=== PATIENT | female | born 1990 | race Caucasian/White ===

== ENCOUNTER 2021-08-14 07:30 | Inpatient (IN) | payer BC ==
[2021-09-14] MEDS ORDERED: Ondansetron PF 4 MG/2 ML Vial IVP PRN ×3 (05:44→14:42)
[2021-09-14] MEDS ORDERED: Bicitra 30 ML UDCUP PO PRN (05:44)
[2021-09-14] MEDS ORDERED: Famotidine/PF 20 mg/2ml Vial SLOW IVP PRN (05:44)
[2021-09-14] MEDS ORDERED: hydrALAZINE 20 MG/ML VIAL SLOW IVP PRN ×2 (05:44→14:42)
[2021-09-14] MEDS ORDERED: Promethazine HCl 25 MG/ML VIAL IM PRN ×2 (05:44→09:45)
[2021-09-14] MEDS ORDERED: Docusate 100 MG CAP PO PRN (05:44)
[2021-09-14] MEDS ORDERED: CEFAZOLIN 2 GM in Premix Bag 1 BAG IVPB SCH (06:00)
[2021-09-14] MEDS: Lactated Ringer's 1,000 ML IV SCH ×2 (06:10→07:19)
[2021-09-14 06:21] VITALS: BMI 43.5
[2021-09-14 06:48] LABS: Hemoglobin 10.2 g/dL (12.0-15.5); Mean Corpuscular HGB CONC 33.8 g/dL (32.0-36.0); Mean Corpuscular Hemoglobin 30.5 pg (27.0-33.0); Mean Corpuscular Volume 90.4 fl (81.6-98.3); Mean Platelet Volume 11.4 fl (7.4-10.4); Platelet Count 150 10x3/uL (150-450); RBC Distribution Width 16.3 % (11.5-14.5); Red Blood Cell (RBC) Count 3.34 10x6/uL (3.90-5.03); White Blood Cell (WBC) Count 7.9 10x3/uL (3.5-10.5)
[2021-09-14] MEDS ORDERED: Ondansetron PF 4 MG/2 ML Vial ONE (07:03)
[2021-09-14] MEDS ORDERED: PHENYLEPHRINE-NS 100 MCG/ML 10 ML SYRINGE ONE (07:03)
[2021-09-14] MEDS ORDERED: Oxytocin 10 UNITS/ML VIAL ONE ×2 (07:03→08:04)
[2021-09-14] MEDS ORDERED: Morphine PF 10 MG/10 ML VIAL ONE (07:03)
[2021-09-14] MEDS ORDERED: ePHEDrine Sulfate 50 MG/10 ML VIAL ONE (07:04)
[2021-09-14] MEDS ORDERED: Ketorolac Tromethamine 30 MG/ML VIAL ONE (07:04)
[2021-09-14] MEDS ORDERED: Phenylephrine 40 MG/NS 250 ML 250 ML ONE (07:06)
[2021-09-14 07:30] LABS: HIV (1/2) Antibody/Antigen Non-Reactive (NonReactive); HIV 1/2 INDEX 0.05 S/CO (<1.00); Hep B Surf Ag Non-Reactive S/CO (NonReactive); Syphilis Antibody Nonreactive (Nonreactive); Syphilis Antibody Index 0.08 S/CO (<1.00 Non-Reactive)
[2021-09-14] MEDS ORDERED: Midazolam HCl 2 mg/2 ml Vial ONE (08:12)
[2021-09-14] MEDS ORDERED: Misoprostol 200 MCG TAB ONE (09:22)
[2021-09-14] MEDS ORDERED: Promethazine HCl 25 MG SUPP PR PRN (09:45)
[2021-09-14] MEDS ORDERED: HYDROmorphone 2 MG/ML VIAL SLOW IVP PRN (09:45)
[2021-09-14] MEDS ORDERED: Hydrocerin (Eucerin) Cream 120 gm Jar TOP PRN (09:45)
[2021-09-14] MEDS ORDERED: Naloxone HCl 0.4 mg/ml Vial IVP PRN ×2 (09:45)
[2021-09-14] MEDS ORDERED: Ketorolac Tromethamine 30 MG/ML VIAL IVP SCH (09:45)
[2021-09-14] MEDS ORDERED: Ondansetron HCl/PF 4 MG/2 ML Vial IVP PRN (09:45)
[2021-09-14] MEDS ORDERED: Meperidine HCl/PF 25 MG/ML VIAL SLOW IVP PRN (09:45)
[2021-09-14] MEDS ORDERED: Fentanyl 100 MCG/2 ML VIAL SLOW IVP PRN (09:45)
[2021-09-14] MEDS ORDERED: Naloxone HCl 0.4 mg/ml Vial IV PRN (09:45)
[2021-09-14] MEDS ORDERED: diphenhydrAMINE 50 MG/ML VIAL IVP PRN (09:45)
[2021-09-14] MEDS ORDERED: Communication Order-Pharmacy FS SCH (09:45)
[2021-09-14 11:28] LABS: Hemoglobin 9.3 g/dL (12.0-15.5)
[2021-09-14] MEDS ORDERED: Boostrix 0.5 ML (Tdap) VIAL IM ONE (14:42)
[2021-09-14] MEDS ORDERED: Lanolin Ointment 7 GM TUBE TOP PRN (14:42)
[2021-09-14] MEDS ORDERED: Misoprostol 200 MCG TAB PR PRN (14:42)
[2021-09-14] MEDS ORDERED: diphenhydrAMINE 25 MG CAP PO PRN (14:42)
[2021-09-14] MEDS ORDERED: NS w/ Oxytocin 30 units 500 ML IV SCH (14:42)
[2021-09-14] MEDS: Ketorolac Tromethamine 30 MG/ML VIAL IVP PRN (19:35)
[2021-09-14] MEDS: Docusate Calcium (SURFAK) 240 MG CAP PO SCH (21:07)
[2021-09-14] MEDS: Ferrous Sulfate 325 MG TAB PO SCH (21:07)
[2021-09-14] MEDS ORDERED: HYDROcodone/Acetaminophen 5/325 mg Tablet PO PRN (21:45)
[2021-09-15] MEDS: Ketorolac Tromethamine 30 MG/ML VIAL IVP PRN (01:52)
[2021-09-15 05:04] LABS: Hemoglobin 8.9 g/dL (12.0-15.5); Mean Corpuscular HGB CONC 33.8 g/dL (32.0-36.0); Mean Corpuscular Hemoglobin 30.5 pg (27.0-33.0); Mean Corpuscular Volume 90.1 fl (81.6-98.3); Mean Platelet Volume 11.4 fl (7.4-10.4); Platelet Count 164 10x3/uL (150-450); RBC Distribution Width 16.6 % (11.5-14.5); Red Blood Cell (RBC) Count 2.92 10x6/uL (3.90-5.03); White Blood Cell (WBC) Count 14.9 10x3/uL (3.5-10.5)
[2021-09-15] MEDS: HYDROcodone/Acetaminophen 5/325 mg Tablet PO PRN ×2 (08:33→13:48)
[2021-09-15] MEDS: Ferrous Sulfate 325 MG TAB PO SCH ×2 (08:33→21:07)
[2021-09-15] MEDS: Prenatal Vitamin 1 TAB PO SCH (08:33)
[2021-09-15] MEDS: Simethicone Chewable 80 MG TAB PO PRN ×3 (08:34→21:07)
[2021-09-15] MEDS: Docusate Calcium (SURFAK) 240 MG CAP PO SCH ×2 (08:34→21:07)
[2021-09-15] MEDS: Ibuprofen 800 MG TAB PO SCH ×2 (13:47→21:07)
[2021-09-16] MEDS: Ibuprofen 800 MG TAB PO SCH (05:10)
[2021-09-16 07:55] VITALS: BP 136/70; TEMP 98.4
[2021-09-16] MEDS: Ferrous Sulfate 325 MG TAB PO SCH (08:33)
[2021-09-16] MEDS: Prenatal Vitamin 1 TAB PO SCH (08:33)
[2021-09-16] MEDS: Docusate Calcium (SURFAK) 240 MG CAP PO SCH (08:33)
[2021-09-16] MEDS: Simethicone Chewable 80 MG TAB PO PRN (08:37)
== END 2021-09-16 14:30 | disposition home or self-care (01) | DRG 787 ==
LOC: CSHLD 09-14 05:24 → CSHPP 09-14 14:20
PROVIDERS: ADMIT Obstetrics & Gynecology; ATTEND Obstetrics & Gynecology
PROC: 10D00Z1 Extraction of Products of Conception, Low, Open Approach (ICD-10-PCS; principal; 2021-09-14)
DX: O34.211 Maternal care for low transverse scar from previous cesarean delivery (principal); O72.1 Other immediate postpartum hemorrhage; O99.62 Diseases of the digestive system complicating childbirth; O71.89 Other specified obstetric trauma; K66.0 Peritoneal adhesions (postprocedural) (postinfection); Z3A.39 39 weeks gestation of pregnancy; Z37.0 Single live birth
CPT/HCPCS: 36415; 51702; 85027; 86780; 86850; 86900; 86901; 87340; 87389; J0690; J1885; J2250; J2274; J2405; J2590; J7120; S0028

== ENCOUNTER 2021-09-09 09:32 | Outpatient (CLI) | payer BC ==
[2021-09-09 18:08] LABS: SARS-CoV-2 PCR by NAA Not Detected (NotDetected)
== END 2021-09-09 09:33 | disposition home or self-care (01) ==
LOC: CSHLAB 09:32
PROVIDERS: ATTEND Obstetrics & Gynecology
DX: Z01.812 Encounter for preprocedural laboratory examination (principal); Z20.822 Contact with and (suspected) exposure to COVID-19
CPT/HCPCS: U0003; U0005